=== PATIENT | female | born 1960 | race Hispanic/Latino ===

== ENCOUNTER 2019-09-13 09:35 | Emergency (ER) | payer SELFPAY ==
[2019-09-13] MEDS ORDERED: EPINEPHrine INJ 0.1 MG/ML 10 ML SYG IV ONE (09:36)
--- NOTE | 2019-09-13 09:48 | ED.PDOC ---
History of Present Illness - General Chief Complaint: Cardiac Respiratory Arrest Stated Complaint: CPR Time Seen by Provider: 09/13/19 09:35 Source: police, EMS Exam Limitations: clinical condition - History of Present Illness Initial Comments: Pt is a 58 yo female who presents in cardiac arrest with CPR in progress via EMS. Per EMS, they were called at 0900 for unresponsive person. Upon arrival, pt in asystole and CPR initiated. Pt intubated and given epi x 2 in route. Allergies/Adverse Reactions: Allergies UNOBTAINABLE Allergy (Verified 09/13/19 09:44) Review of Systems - Review of Systems Unable to Obtain Due To: clinical condition, other - CPR in progress Family Medical History - Family History Mother Family History: Unknown Living Status: Unknown Physical Exam - Physical Exam General Appearance: Other - Intubated, CPR in progress. Pt makes no purposeful movements. Eye Exam: bilateral other - Pupils fixed and dilated Ears, Nose, Throat: other - head is atraumatic, ET tube in place Neck: other - trachea is midline Respiratory: other - No breath sounds audible. Air entry heard over epigastric area. ET tube pulled and BV mask ventilation started Cardiovascular/Chest: other - No pulse. No cardiac sounds heard Gastrointestinal/Abdominal: other - distended abdomen with air entry heard in epigastrium Extremity: other - atraumatic Neurologic: other - No movement or speech Progress - Progress Progress: 09/13/19 09:51 Pt presents in cardiopulmonary arrest with CPR in progress. ET tube not in appropriate position clinically(no breath sounds) and removed upon arrival and mask venitalated. i attempted intubation with glidescope x 1 unsuccessfully and continued bag mask ventillation. Given total of 5 mg Epi and pt remained in asystole. Cardiac US showed no wall motion. Code called at 0942. i informed patients daughter who was in waiting room and answered all questions. 09/13/19 11:32 Multiple family members at bedside. ZAKIA called and present in ED. Family deciding on arrangements Procedures - Intubation Time of Intubation: 09:30 - Unsuccessful attempt x 1. Continued to BV mask ventilate Intubation Method: orotracheal Tube Size (cm): 7.5 Intubation Complications: oral-unsuccessful attempt - Additional Procedures Additional Procedures: CPR - CPR in progress upon arrival and continue in ED. See ACLS sheet for full details. Cardiac bedside US performed at 0940 and showed no wall motion Departure - Departure Clinical Impression: Cardiac arrest, Hypertension, Diabetes mellitus Time of Disposition: 09:55 Disposition:
[2019-09-13 10:12] VITALS: TEMP 95.9
== END 2019-09-13 09:42 | disposition expired ==
LOC: ER 09:35
DX: I46.9 Cardiac arrest, cause unspecified (principal); I10 Essential (primary) hypertension; E11.9 Type 2 diabetes mellitus without complications